=== PATIENT | female | born 1970 | race Two or more races ===

== ENCOUNTER 2024-09-05 08:11 | Emergency (ER) | payer MEDICAID, OTHER ==
[~2024-09-05] VITALS: Ht 160 cm; Wt 120.3 kg
[2024-09-05 08:59] VITALS: BP 145/95; PULSE 82; RESP 18; TEMP 97.8; O2SAT 95
[2024-09-05] MEDS ORDERED: ACE3T PO (09:15)
--- NOTE | 2024-09-05 09:16 | ED.PDOC ---
Eye-HPI HPI Comments This is a pleasant 53-year-old female that presents with a chief complaint of tooth pain to the right upper quadrant. Located tooth 22. Seen by a dentist several days ago and is currently on Augmentin reports she has been able to get adequate relief with [id number] Tylenol. Denies fevers chills nausea vomiting diarrhea Chief Complaint: Tooth Pain Time Seen by MD: 08:26 Primary Care Provider: PRIYA Reviewed Notes: Nurses Notes, Medications, Allergies Allergies: Coded Allergies: NO KNOWN ALLERGIES (Unverified , 09/05/24) Home Meds Active Scripts Acetaminophen W/ Codeine (Tylenol W/Cod #3) 1 Tab Tb, 1 TAB PO Q8HP PRN for 2 Days, #6 TAB 0 Refills Prov:RADHA SINGER Jaclyn [employer] 09/05/24 Information Source: Patient Mode of Arrival: Ambulatory All Other Systems: Reviewed and Negative (per hpi) Physical Exam General Appearance: No Apparent Distress, Normal HEENT: Normal ENT Inspection, Pharynx Normal, TMs Normal Neck: Full Range of Motion, Non-Tender, Normal, Normal Inspection Respiratory: Chest Non-Tender, Lungs Clear, No Accessory Muscle Use, No Respiratory Distress, Normal Breath Sounds Cardiovascular: No Edema, No JVD, No Murmur, No Gallop, Normal Peripheral Pulses, Regular Rate/Rhythm Breast Exam: Deferred Gastrointestinal: No Organomegaly, Non Tender, No Pulsatile Mass, Normal Bowel Sounds, Soft Genitalia: Deferred Pelvic: Deferred Rectal: Deferred Extremities: No calf tenderness, Normal capillary refill, Normal inspection, Normal range of motion, Non-tender, No pedal edema Musculoskeletal : Apperance: Normal Neurologic: Alert, sanipractic physician II-XII nml as Tested, No Motor Deficits, Normal Affect, Normal Mood, No Sensory Deficits Cerebellar Function: Normal Reflexes: Normal Skin: Dry, Normal Color, Warm Lymphatic: No Adenopathy Was a procedure done? Was a procedure done?: No EENT DIFF Eye: Other X-Ray, Labs, Meds, VS Vital Signs Date Time Temp Pulse Resp B/P (MAP) Pulse Ox O2 Delivery O2 Flow Rate FiO2 09/05/24 08:59 82 18 95 Room Air 09/05/24 08:59 97.8 82 18 145/95 (112) 95 97.8 09/05/24 08:26 97.8 82 18 145/95 (112) 95 97.8 X-Ray, Labs, Meds, VS Comment After ROS physical examination no red flags. Airway intact. Moist mucous membranes. Checked the [employer] website, no history of narcotic use within the past year. Will prescribe Sawyer p.o. for pain management. Education provided on possible side effects of medication including drowsiness, nausea, respiratory distress, etc. Do not drive, operate heavy machinery or make legal decisions while taking medication. Follow-up with your PMD within 24 to 48 hours. Time of 1ST Reevaluation: 09:00 Reevaluation 1ST: Improved Patient Education/Counseling: Diagnosis, Treatment Family Education/Counseling: Diagnosis, Treatment Departure 1 Departure Time of Disposition: 09:14 Impression: Primary Impression: Tooth pain Disposition: HOME / SELF CARE / HOMELESS Condition: Stable e-Prescriptions Acetaminophen W/ Codeine (Tylenol W/Cod #3) 1 Tab Tb 1 TAB PO Q8HP PRN for 2 Days, #6 TAB 0 Refills Prov: RADHA SINGER NP 09/05/24 Critical Care Note Critical Care Time?: No Stability Stability form required: No Heart Score Heart Score: Heart Score Response (Comments) Value History N/A 0 EKG N/A 0 Age N/A 0 Risk Factors N/A 0 Troponin N/A 0 Total 0 RADHA SINGER NP Sep 05, 2024 09:16
== END 2024-09-05 09:25 | disposition home or self-care (01) ==
LOC: ER 08:20
DX: K08.89 Other specified disorders of teeth and supporting structures (principal)